=== PATIENT | female | born 2000 | race Caucasian/White ===

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

== ENCOUNTER 2018-02-01 00:11 | Emergency (ER) | payer BC ==
[~2018-02-01] VITALS: Ht 162.6 cm; Wt 54.6 kg
[~2018-02-01 00:11] MED LIST changes: -DiphenhydrAMINE HCL 50 MG/ML VIAL ONE; -LORAZEPAM 2 MG/ML 1 ML VIAL ONE; -METHYLPREDNISOLONE 125 MG VIAL ONE; -ONDANSETRON INJ 2 MG/ML 2 ML VIAL ONE; -PRED20TA2 PO; -RANI150T3 PO; -RANITIDINE HCL 25 MG/ML INJ ONE
[2018-02-01 00:17] VITALS: TEMP 36.5; Ht 162.6 cm; Wt 54.6 kg
[2018-02-01] MEDS ORDERED: KETOROLAC TROMETHAMINE 30 MG/ML VIAL IV STA (00:23)
[2018-02-01] MEDS ORDERED: ONDANSETRON INJ 2 MG/ML 2 ML VIAL IV STA (00:23)
--- NOTE | 2018-02-01 00:39 | EMERGENCY ROOM VISIT NOTE ---
History Report prepared by Any: Kyle Conroy Under the Supervision of: Dr. Caleb Jay M.D. First contact with patient: 00:22 Chief Complaint: ABDOMINAL PAIN Stated Complaint: ABDOMINAL PAIN History of Present Illness The patient is a 17 year old female who presents to the Emergency Room with complaints of constant RLQ abdominal pain beginning eight hours ago. The patient states that her symptoms started earlier today and radiate to her back. She notes that her pain is currently a 7-8/10 and worsens with movement. She reports that she does not have a history of similar symptoms. She also complains of nausea. She denies any vaginal discharge/bleeding, urinary symptoms , vomiting, fever, and diarrhea. She also denies any history of abdominal surgery and ovarian cysts. The patient states that her last menstrual period was a week ago and that there is no chance that she is . Source of History: patient Onset: eight hours ago Position: abdomen (RLQ) Symptom Intensity: 7-8/10 Timing: constant Modifying Factors (Worsening): movement Associated Symptoms: + nausea, + back pain, No fevers, No diarrhea Note: The patient also denies any vaginal discharge/bleeding. Review of Systems See HPI for pertinent positives & negatives. A total of 10 systems reviewed and were otherwise negative. Past Medical & Surgical Medical Problems: (1) Migraines Family History Cancer Social History Smoking Status: Never Smoker Alcohol Use: occasionally Housing Status: lives with family Occupation Status: unemployed Current/Historical Medications Scheduled Control Pills ( Control Pills), 1 TAB PO DAILY Allergies Coded Allergies: Gadobutrol (Verified Allergy, Severe, Unable to breath, 02/01/18) MRI dye Physical Exam Vital Signs Date Time Temp Pulse Resp B/P (MAP) Pulse Ox O2 Delivery O2 Flow Rate FiO2 02/01/18 00:17 36.5 81 16 110/72 97 Room Air Physical Exam GENERAL: Patient is in no acute distress. HEENT: No acute trauma, normocephalic atraumatic, mucous membranes moist, no nasal congestion, no scleral icterus. NECK: No stridor, no adenopathy, no meningismus, trachea is midline. LUNGS: Clear to auscultation bilaterally, no wheeze, no rhonchi, breath sounds equal. HEART: Without murmurs gallops or rubs, regular rate and rhythm. ABDOMEN: Soft, bowel sounds positive, no hernias, no peritonitis, moderate tenderness in the RLQ. EXTREMITIES: No cyanosis or edema, full range of motion of all the joints without pain or difficulty, no signs for acute trauma. NEUROLOGIC: Oriented x 3, no acute motor or sensory deficits, no focal weakness. SKIN: No rash, no jaundice, no diaphoresis. Medical Decision & Procedures ER Provider Diagnostic Interpretation: Abdominal and pelvic ultrasounds are pending. Laboratory Results 02/01/18 00:46 Red Blood Count 4.89, Mean Corpuscular Volume 81.4, Mean Corpuscular Hemoglobin 28.6, Mean Corpuscular Hemoglobin Concent 35.2, Mean Platelet Volume 13.1, Neutrophils (%) (Auto) 49.5, Lymphocytes (%) (Auto) 39.4, Monocytes (%) (Auto) 6.3, Eosinophils (%) (Auto) 3.9, Basophils (%) (Auto) 0.6, Neutrophils # (Auto) 4.96, Lymphocytes # (Auto) 3.94, Monocytes # (Auto) 0.63, Eosinophils # (Auto) 0.39, Basophils # (Auto) 0.06 02/01/18 00:46 Test 02/01/18 00:46 White Blood Count 10.01 K/uL (4.8-10.8) Red Blood Count 4.89 M/uL (4.2-5.4) Hemoglobin 14.0 g/dL (12.0-16.0) Hematocrit 39.8 % (37-47) Mean Corpuscular Volume 81.4 fL (80-100) Mean Corpuscular Hemoglobin 28.6 pg (25-34) Mean Corpuscular Hemoglobin Concent 35.2 g/dl (32-36) Platelet Count 159 K/uL (130-400) Mean Platelet Volume 13.1 fL (7.4-10.4) Neutrophils (%) (Auto) 49.5 % Lymphocytes (%) (Auto) 39.4 % Monocytes (%) (Auto) 6.3 % Eosinophils (%) (Auto) 3.9 % Basophils (%) (Auto) 0.6 % Neutrophils # (Auto) 4.96 K/uL (1.4-6.5) Lymphocytes # (Auto) 3.94 K/uL (1.2-3.4) Monocytes # (Auto) 0.63 K/uL (0.11-0.59) Eosinophils # (Auto) 0.39 K/uL (0-0.5) Basophils # (Auto) 0.06 K/uL (0-0.2) RDW Standard Deviation 37.1 fL (36.4-46.3) RDW Coefficient of Variation 12.6 % (11.5-14.5) Immature Granulocyte % (Auto) 0.3 % Immature Granulocyte # (Auto) 0.03 K/uL (0.00-0.02) Urine Color YELLOW Urine Appearance CLOUDY (CLEAR) Urine pH 6.5 (4.5-7.5) Urine Specific Jennings 1.016 (1.000-1.030) Urine Protein NEG (NEG) Urine Glucose (UA) NEG (NEG) Urine Ketones 1+ (NEG) Urine Occult Blood NEG (NEG) Urine Nitrite NEG (NEG) Urine Bilirubin NEG (NEG) Urine Urobilinogen NEG (NEG) Urine Leukocyte Esterase NEG (NEG) Urine WBC (Auto) 1-5 /hpf (0-5) Urine RBC (Auto) 0-4 /hpf (0-4) Urine Hyaline Casts (Auto) 1-5 /lpf (0-5) Urine Epithelial Cells (Auto) >30 /lpf (0-5) Urine Bacteria (Auto) NEG (NEG) Anion Gap 5.0 mmol/L (3-11) Est Creatinine Clear Calc Drug Dose 118.2 ml/min Estimated GFR () 148.4 Estimated GFR (Non- 128.1 BUN/Creatinine Ratio 13.8 (10-20) Calcium Level 9.1 mg/dl (8.5-10.1) Total Bilirubin 0.3 mg/dl (0.2-1) Aspartate Amino Transf (AST/SGOT) 19 U/L (15-37) Alanine Aminotransferase (ALT/SGPT) 31 U/L (12-78) Alkaline Phosphatase 57 U/L (45-117) Total Protein 7.6 gm/dl (6.4-8.2) Albumin 4.0 gm/dl (3.4-5.0) Globulin 3.6 gm/dl (2.5-4.0) Albumin/Globulin Ratio 1.1 (0.9-2) Lipase 89 U/L (73-393) Human Chorionic Gonadotropin, Qual NEG (NEG) Laboratory results reviewed by me. Medications Administered Medications (Trade) Dose Ordered Sig/Carrol Route Start Time Stop Time Status Last Admin Dose Admin Ondansetron HCl (Zofran Inj) 4 mg NOW STAT IV 02/01/18 00:23 02/01/18 00:29 DC 02/01/18 00:58 4 MG Ketorolac Tromethamine (Toradol Inj) 30 mg NOW STAT IV 02/01/18 00:23 02/01/18 00:29 DC 02/01/18 00:57 30 MG ED Course 0022: The patient was evaluated in room B9. A complete history and physical exam was performed. 0023: Toradol Inj 30mg IV, Zofran Inj 4mg IV 0230: The patient was signed out to Dr. Marie at the change of shift. Medical Decision Differential diagnoses include: appendicitis, ovarian cyst, musculoskeletal pain , hernia, , biliary colic, pancreatitis, and nerve impingement. There is no leukocytosis or concerning anemia. No significant electrolyte abnormality, kidney failure, hepatitis or pancreatitis. testing was negative. Urinalysis did not show significant hematuria or infection. On exam , the patient was tender in the right lower quadrant, she was not febrile or toxic, no peritonitis. Patient received IV Zofran and IV Toradol, she is resting comfortably. Patient has been ordered for an ultrasound of her abdomen to evaluate the appendix, an ultrasound of her pelvis to evaluate her ovaries and uterus. She is drinking oral contrast in case she does require a CT of the abdomen and pelvis. At this point, all imaging studies are pending. The cause for the pain is unclear. The case will be assumed by Dr. Marie at the change of shift, please see her notes for further information and the final disposition and plan. Medication Reconcilliation Current Medication List: was personally reviewed by me Blood Pressure Screening Patient's blood pressure: Normal blood pressure Blood pressure disposition: Did not require urgent referral Impression Primary Impression: Right lower quadrant abdominal pain Scribe Attestation The scribe's documentation has been prepared under my direction and personally reviewed by me in its entirety. I confirm that the note above accurately reflects all work, treatment, procedures, and medical decision making performed by me. Departure Information Dispostion Still a Patient Referrals No Doctor, Assigned (PCP) Patient Instructions My [facility]
[2018-02-01 00:59] LABS: BASO % 0.6 %; BASO ABS # 0.06 K/uL (0-0.2); EOS % 3.9 %; EOS ABS # 0.39 K/uL (0-0.5); HEMATOCRIT 39.8 % (37-47); IG# 0.03 K/uL (0.00-0.02); LYMPH % 39.4 %; LYMPH ABS # 3.94 K/uL (1.2-3.4); MEAN CELL VOLUME 81.4 fL (80-100); MEAN CORPUSCULAR HEMOGLOBIN 28.6 pg (25-34); MEAN CORPUSCULAR HGB CONC 35.2 g/dl (32-36); MEAN PLATELET VOLUME 13.1 fL (7.4-10.4); MONO % 6.3 %; MONO ABS # 0.63 K/uL (0.11-0.59); NEUT % 49.5 %; NEUT ABS # 4.96 K/uL (1.4-6.5); PLATELET COUNT 159 K/uL (130-400); RED CELL DISTRIBUTION WIDTH CV 12.6 % (11.5-14.5); RED CELL DISTRIBUTION WIDTH SD 37.1 fL (36.4-46.3); WHITE BLOOD COUNT 10.01 K/uL (4.8-10.8)
[2018-02-01 01:23] LABS: CALCIUM 9.1 mg/dl (8.5-10.1); CREATININE 0.66 mg/dl (0.60-1.20); POTASSIUM 3.7 mmol/L (3.5-5.1)
[2018-02-01 01:26] LABS: TOTAL PROTEIN 7.6 gm/dl (6.4-8.2)
--- NOTE | 2018-02-01 04:00 | EMERGENCY ROOM VISIT NOTE ---
ED Visit Note First contact with patient: 03:07 Patient signed out to me by Dr. Jay. Patient was awaiting ultrasound and possible CAT scan pending results. While he was seeing of the patient's it was handed ultrasound results for the ultrasound the patient's appendix, at the time I was able to also see the ultrasound results of the pelvis and attempt to recheck the patient treatment taken down for CAT scan. Ultrasound appendix: Nondiagnostic study for the exclusion of acute appendicitis. The appendix is not visualized. Radiologist: Kyung Del Angel MD Ultrasound pelvis: Uterus appears normal. Endometrium measures 9 mm. No evidence of torsion. There is a 2.5 cm right adnexal cyst, likely a dominant follicle. Appearance of mild debris in the urinary bladder, correlate with urinalysis. Radiologist:Kyung Del Angel MD CT abdomen and pelvis with contrast: Visualized portions of the appendix are normal. No bowel obstruction or inflammatory change. Liver, gallbladder, spleen, pancreas, adrenal glands, and the kidneys are unremarkable. Urinary bladder and uterus appear normal. There is a right adnexal cyst, better characterized on pelvic ultrasound of the same date. No acute osseous findings. Radiologist:Kyung Del Angel MD 0415: Patient updated on all results. States pain is fine at rest but worse with any movement. Discussed with patient follow-up with [employer] as a precaution given dominant follicle/early cyst seen. Discussed symptoms to watch and return for, she verbalized understanding was agreeable with plan.
[2018-02-01] MEDS ORDERED: ACETAMINOPHEN 500 MG TAB PO STA (04:16)
[2018-02-01 04:39] VITALS: BP 112/64; PULSE 72; O2SAT 98
--- NOTE | 2018-02-01 06:38 | DIAGNOSTIC IMAGING REPORT ---
CT SCAN OF THE ABDOMEN AND PELVIS WITHOUT CONTRAST CLINICAL HISTORY: Right lower quadrant abdominal pain COMPARISON STUDY: No previous studies for comparison. TECHNIQUE: CT scan of the abdomen and pelvis was performed from the lung bases to the proximal femurs. Images are reviewed in the axial, sagittal, and coronal planes. IV contrast was not administered for this examination. A dose lowering technique was utilized adhering to the principles of ALARA. CT DOSE: 274.90 mGy.cm FINDINGS: Lower chest: The heart is normal in size and configuration, without pericardial effusion. The lung bases and pleural spaces are clear. Liver: The unenhanced liver is normal in size, contour, and attenuation. There is no intrahepatic biliary ductal dilatation. Gallbladder: Unremarkable. Spleen: Normal in size and attenuation. Pancreas: Unremarkable. Adrenal glands: Unremarkable. Kidneys: There is incomplete renal rotation. No renal, ureteral, or bladder calculi are visualized. There is minor fullness of the renal collecting systems. Bowel: There are no transition zones indicate bowel obstruction. There is no evidence of acute appendicitis. Peritoneum: There is no intraperitoneal free air or abdominal ascites. Vasculature: The abdominal aorta is normal in course and caliber. Adenopathy: There are mildly prominent ileocolic lymph nodes, likely reactive. Pelvic viscera: There is a 27 mm right ovarian follicle. Skeletal structures: No destructive osseous lesions are seen. IMPRESSION: 1. No evidence of bowel obstruction. No evidence of free air 2. No renal, ureteral, or bladder calculi identified 3. No evidence of acute appendicitis 4. 27 mm right ovarian follicle Electronically signed by: Boris Vargas M.D. 02/01/2018 6:37 AM Dictated Date/Time: 02/01/2018 6:33 AM
--- NOTE | 2018-02-01 07:13 | DIAGNOSTIC IMAGING REPORT ---
APPENDIX ULTRASOUND HISTORY: Right lower quadrant abdominal pain. COMPARISON: None. FINDINGS: Transabdominal scanning of the right lower quadrant was performed. The appendix was not identified. There are no fluid collections or masses within the right lower quadrant. IMPRESSION: The appendix was not identified. Electronically signed by: Juan Daniel Dominguez M.D. 02/01/2018 7:12 AM Dictated Date/Time: 02/01/2018 7:12 AM
--- NOTE | 2018-02-01 08:06 | DIAGNOSTIC IMAGING REPORT ---
PELVIC COMPLETE NON OB CLINICAL HISTORY: 17 years-old Female presenting with poss cyst, pain in rlq. TECHNIQUE: Real-time grayscale and color and spectral Doppler ultrasound imaging of the pelvis was performed using a transabdominal probe. COMPARISON: None. FINDINGS: Uterus: Normal. Anteverted. The uterus measures 7.3 x 3.3 x 5.1 cm. Endometrial stripe measures 9 mm in thickness. Endometrium normal-appearing. Cervix normal. Right adnexa: Right ovary contains a dominant follicle. Right ovary measures 3.9 x 2.4 x 2.1 cm. Normal color Doppler flow and arterial and venous waveforms within the ovarian parenchyma. Left adnexa: Left ovary normal. Left ovary measures 2.6 x 1.5 x 3.2 cm. Normal color Doppler flow and arterial and venous waveforms within the ovarian parenchyma. Other: No free fluid. Debris noted in the urinary bladder. IMPRESSION: 1. No ovarian torsion. Dominant follicle in the right ovary. Normal uterus. 2. Debris in the bladder, nonspecific. Correlate with urinalysis to exclude cystitis. Electronically signed by: London Gann M.D. 02/01/2018 8:04 AM Dictated Date/Time: 02/01/2018 7:11 AM
== END 2018-02-01 04:40 | disposition home or self-care (01) ==
LOC: C.EDB 00:13
DX: R10.31 Right lower quadrant pain (principal); Z79.3 Long term (current) use of hormonal contraceptives; Z91.041 Radiographic dye allergy status

== ENCOUNTER 2018-06-07 09:41 | Emergency (ER) | payer BC ==
[~2018-06-07] VITALS: Ht 162.6 cm; Wt 51.0 kg
[~2018-06-07 09:41] MED LIST changes: +SERT25TA PO
[2018-06-07 09:48] VITALS: BP 114/77; TEMP 36.4; Ht 162.6 cm; Wt 51.0 kg
[2018-06-07] MEDS ORDERED: IBUPROFEN 600 MG TAB PO STA (10:30)
--- NOTE | 2018-06-07 10:46 | EMERGENCY ROOM VISIT NOTE ---
ED Visit Note First contact with patient: 09:52 CHIEF COMPLAINT Sore throat 1 day HISTORY OF PRESENT ILLNESS: Patient is a 18-year-old female with past medical history significant for migraine headaches who presents emergency department for evaluation of a sore throat. Her symptoms actually started yesterday with a mild headache. Subjectively, she had chills and felt feverish, she states the sore throat woke her up overnight. She was a little bit nauseous. She complains of pain that is worse with swallowing. She rates her discomfort an 8/ 10. She denies any other upper respiratory symptoms. No rash. Denies any posterior neck pain or stiffness. No difficulty breathing. She lives with her boyfriend who is not ill. REVIEW OF SYSTEMS: Review of systems as per HPI. All other systems reviewed were negative. At least 6 systems reviewed. PMH: Electronic medical records are reviewed and summarized as above/below. See Problem List. SOCIAL HISTORY: Patient lives in apartment with her boyfriend. College student. Non-smoker. PHYSICAL EXAM: Vital Signs: Reviewed Nurse's notes. MENTAL STATUS: Well-appearing, nontoxic 18-year-old who is awake and alert and in no acute distress. EARS: Tympanic membranes intact, not inflamed, have normal contour. External canals clear. THROAT: The pharynx not inflamed and or swollen. No exudates are seen on the tonsils. The oropharyngeal airway is patent. Uvula is midline and no abscess is seen. NOSE: Nares patent, turbinates edematous and boggy with clear rhinorrhea. SKIN: Clear and dry, no eruptions. No cyanosis, no petechiae. NECK: Supple, without lymphadenopathy. No meningeal signs. HEART: Regular rate and rhythm, with normal S1 and S2, no murmur or gallop or rub is heard. LUNGS: Breath sounds equal and clear to auscultation without wheezes, rales, or rhonchi heard. EMERGENCY DEPARTMENT COURSE: Rapid strep was negative. Backup cultures were sent. Patient requested and was given ibuprofen. She was made aware of the results of her rapid strep. Supportive care measures were discussed. Her illness is likely viral in nature. Differential diagnoses also entertained included pharyngitis. Her exam is not consistent with retropharyngeal or peritonsillar abscess. I do not suspect meningitis. Medication reconciliation: I attest that I have personally reviewed the patient' s current medication list. Blood pressure screening : Patient was found to have normal blood pressure on screening and does not require follow-up. Problem List Medical Problems: (1) Migraines Status: Chronic Current/Historical Medications Scheduled Control Pills ( Control Pills), 1 TAB PO DAILY Sertraline (Zoloft), 25 MG PO DAILY Allergies Coded Allergies: Gadobutrol (Verified Allergy, Severe, Unable to breath, 06/07/18) MRI dye Vital Signs Date Time Temp Pulse Resp B/P (MAP) Pulse Ox O2 Delivery O2 Flow Rate FiO2 06/07/18 11:27 98 16 98 06/07/18 09:48 36.4 109 20 114/77 97 Room Air Medications Administered Medications (Trade) Dose Ordered Sig/Carrol Route Start Time Stop Time Status Last Admin Dose Admin Ibuprofen (Motrin Tab) 600 mg NOW STAT PO 06/07/18 10:30 06/07/18 10:31 DC 06/07/18 10:35 600 MG Departure Information Impression Primary Impression: Acute pharyngitis Referrals No Doctor, Assigned (PCP) Patient Instructions [facility] Additional Instructions Acetaminophen(Tylenol) may be used for fever or pain. Use 1000mg every six hours as needed. Avoid using more than 3000mg in a 24 hour period. (AND/OR) Ibuprofen(Motrin, Advil) may be used for fever or pain. Use 600mg every six hours as needed. Take with food. Avoid using more than 2400mg in a 24 hour period. Do not use 2400mg per day for more than three consecutive days without physician direction. Prolonged inappropriate use can lead to stomach upset or ulcers. Pseudoephedrine(Sudaphed): 30-60mg every 6 hours as needed for nasal congestion. Do not take this with other stimulant products or supplements. Guaifenesin (Mucinex) : Take 1200 mg every 12 hours as needed for nasal/chest congestion, to help thin secretions. Rest and drink plenty of fluids. Controlling your fever with Tylenol and Ibuprofen as above will make you feel better. Wash your hands after nose blowing, sneezing, or coughing. Most germs are spread through contact, therefore improper hygiene may result in your close contacts and loved ones becoming ill just like you. Continue current medications. Return to the ER for severe headache, neck stiffness, chest pain, difficulty breathing, fevers, vomiting, worsening of your condition, or as needed. Follow up with your primary physician this week for a recheck of your current condition. We will contact you if your backup throat culture is positive and requires treatment with antibiotics. Problem Qualifiers Primary Impression: Acute pharyngitis Pharyngitis/tonsillitis etiology: unspecified etiology Qualified Codes: J02.9 - Acute pharyngitis, unspecified
[2018-06-07 11:27] VITALS: PULSE 98; O2SAT 98
== END 2018-06-07 11:28 | disposition home or self-care (01) ==
LOC: C.EDB 09:42
DX: J02.9 Acute pharyngitis, unspecified (principal); Z79.3 Long term (current) use of hormonal contraceptives; Z91.041 Radiographic dye allergy status